=== PATIENT | female | born 1950 | race Caucasian/White ===

== ENCOUNTER 2017-10-27 20:33 | Emergency (ER) | payer OTHER ==
[2017-10-27 20:47] VITALS: RESP 20
[2017-10-27] MEDS ORDERED: HYDROMORPHONE HCL 2 MG/ML SOL IM ONE (21:03)
[2017-10-27] MEDS ORDERED: ONDANSETRON HCL 4 MG/2 ML SOL IM ONE (21:04)
[2017-10-27] MEDS ORDERED: ONDANSETRON HCL 4 MG/2 ML SOL ONE (21:09)
[2017-10-27] MEDS ORDERED: HYDROMORPHONE 1 MG/ML SYRINGE ONE (21:09)
[2017-10-27 22:38] VITALS: BP 121/58; PULSE 69; TEMP 97; O2SAT 93
== END 2017-10-27 22:19 | disposition home or self-care (01) | DRG 153 ==
LOC: ED 20:33
DX: J06.9 Acute upper respiratory infection, unspecified (principal); G43.009 Migraine without aura, not intractable, without status migrainosus
CPT/HCPCS: 71046; 87804; 96372; 99283; 99284; J2405; J1170